=== PATIENT | male | born 1980 | race Caucasian/White ===

== ENCOUNTER 2020-06-24 19:52 | Outpatient (REF) | payer BC, SELFPAY ==
[2020-06-27 13:02] LABS: COVID-19 RT-PCR Result NEGATIVE (Negative)
== END 2020-06-24 20:12 ==
LOC: NCHCN 19:52
PROVIDERS: PCP Nurse Practitioner Family; Visit Provider Nurse Practitioner Family
DX: Z20.828 Contact with and (suspected) exposure to other viral communicable diseases (principal)
CPT/HCPCS: U0003

== ENCOUNTER 2021-04-21 15:18 | Outpatient (REF) | payer BC, SELFPAY ==
[2021-04-21 20:57] LABS: HCT 44.2 % (40.0-50.0); HGB 14.6 g/dL (13.5-17.5); MCV 90.8 fL (80-95); MPV 12.4 fL (8.0-11.0); Platelet Count 226 10^3/uL (130-400); RBC 4.87 10^6/uL (4.36-5.78); RDW 14.3 % (11.8-14.1); RDW-SD 47.9 fL; WBC 7.78 10^3/uL (4.4-10.8)
[2021-04-21 21:16] LABS: ALT 30 U/L (16-63); AST 15 U/L (15-37); Albumin 4.1 g/dL (3.4-5.0); Alkaline Phosphatase 55 U/L (46-116); Anion Gap 7.1 mmol/L (3-11); BUN 15 mg/dL (7-18); Bilirubin, Total 0.4 mg/dL (0.2-1.0); CO2 30.9 mmol/L (21.0-32.0); CREATININE 1.1 mg/dL (0.70-1.30); Calcium 8.9 mg/dL (8.5-10.1); Chloride 105 mmol/L (98-107); Glucose 94 mg/dL (74-106); Potassium 4.3 mmol/L (3.5-5.1); Sodium 143 mmol/L (136-145); TSH (W/Ref FT4) 0.87 uIU/mL (0.36-3.74); Total Protein 6.8 g/dL (6.4-8.2)
[2021-05-01 17:39] LABS: Testosterone, Free 11.9 ng/dL (4.65-18.1); Testosterone, Total 441 ng/dL (240-950)
== END 2021-04-21 15:19 | disposition home or self-care (01) ==
LOC: NCHCN 15:18
PROVIDERS: PCP Nurse Practitioner Family; Visit Provider Family Medicine
DX: H00.019 Hordeolum externum unspecified eye, unspecified eyelid (principal); R53.83 Other fatigue
CPT/HCPCS: 80053; 84402; 84403; 85027; 84443

== ENCOUNTER 2023-11-01 15:53 | Outpatient (CLI) | payer BC, SELFPAY ==
--- NOTE | 2023-11-01 09:45 | DI.RAD_ITS ---
Exam(s) XR WRIST RT COMPLETE EXAM: XR WRIST RT COMPLETE CLINICAL HISTORY: RIGHT WRIST PAIN. TECHNIQUE: 2D digital imaging was performed. Three views. COMPARISON: CR RIGHT WRIST COMPLETE from 08/05/2009 CR RIGHT WRIST COMPLETE from 11/20/2009 CT HEAD WITHOUT CONTRAST from 12/12/2009 CR RIGHT WRIST COMPLETE from 01/20/2010 FINDINGS: BONES: No acute fracture is present. There is an old nonunited ulnar styloid fracture. No bony dest ructive lesion is seen. JOINTS: Abnormal widening of the scapholunate distance. Mild dorsal tilt of the lunate. No signif icant degenerative changes. SOFT TISSUE: Normal. IMPRESSION: Scapholunate ligament disruption. Old ulnar styloid fracture. DATA REPOSITORY: RADIATION DOSE DELIVERED:
== END 2023-11-01 15:54 | disposition home or self-care (01) ==
LOC: DIORS 15:53
PROVIDERS: PCP Nurse Practitioner Family; Visit Provider Student in an Organized Health Care Education/Training Program
DX: M25.531 Pain in right wrist (principal)
CPT/HCPCS: 73110

== ENCOUNTER → 2023-12-26 03:26 | Outpatient (CLI) | payer BC, SELFPAY ==
--- NOTE | 2023-12-26 | DI.MRI_ITS ---
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 TECHNIQUE: Multiplanar multisequence MRI was performed. COMPARISON: Comparison x-rays 11/01/2023. FINDINGS: BONES: There is an old nonunited ulnar styloid process fracture. There is minimal marrow edema seen in the proximal pole of the scaphoid bone, but no fractures identified. JOINTS: There is narrowing of the medial radiocarpal joint. There is widening of the scapholunate j luis int with hyperintense signal seen on the T2 weighted images within the joint space. The scapholunate ligament is not visualized. The carpal joints are otherwise unremarkable. TENDONS: Flexors: Unremarkable. Extensors: Unremarkable. MUSCLES: Unremarkable. MEDIAN NERVE: Unremarkable on this noncontrast examination. ULNAR NERVE: Unremarkable on this noncontrast examination. SOFT TISSUES: There is a cyst associated with the triquetral pisiform joint most consistent with a ga nglion cyst. It measures 1.0 x 3.3 cm. LIGAMENTS: There is widening of the scapholunate joint. The scapholunate ligament is not visualized on this examination. TRIANGULAR FIBROCARTILAGE: Unremarkable. OTHER: IMPRESSION: 1. Findings of a scapholunate ligament tear. This is of indeterminate acuity. There is mild increas ed signal seen around the scapholunate region suggesting possible subacute injury. There is mild mar row edema seen in the proximal pole of the scaphoid. No evidence of a scaphoid fracture. 2. Ganglion cyst adjacent to the triquetral pisiform joint. It measures 1.0 x 3.3 cm. 3. 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 DATA REPOSITORY:
== END ==
PROVIDERS: PCP Nurse Practitioner Family; Visit Provider Surgery Plastic and Reconstructive Surgery
DX: S63.391A Traumatic rupture of other ligament of right wrist, initial encounter (principal); X58.XXXA Exposure to other specified factors, initial encounter
CPT/HCPCS: 73221

== ENCOUNTER 2024-04-16 10:32 | Outpatient (REF) | payer BC, SELFPAY | END 2024-04-16 10:33 | disposition home or self-care (01) | LOC: LBN 10:32 | PROVIDERS: PCP Nurse Practitioner Family; Visit Provider Physician Assistant | DX: L98.9 Disorder of the skin and subcutaneous tissue, unspecified (principal) | CPT/HCPCS: 87077; 87070; 87186; 87205 ==

== ENCOUNTER 2024-06-12 03:25 | Outpatient (CLI) | payer BC, SELFPAY ==
[2024-06-12] MEDS: Methacholine 100 MG VIAL IH (12:03)
[2024-06-12] MEDS: Inhaler, Assist Device 1 EACH MC (12:03)
[2024-06-12] MEDS: Albuterol HFA 18 GM 200 PUFF INH IH (12:04)
--- NOTE | 2024-06-13 12:11 | W.PFT ---
Date of service: 06/12/24 Time of Service: 10:11 Pulmonary Function Test Result Indications: Dyspnea Interpretation Spirometry: There is no baseline airflow limitation. There was a 20% decrease in FEV1 with administration of 8mg/dL methacholine. Impression There is borderline airway hyperresponsiveness. Clinical Correlation therefore is recommended.
== END 2024-06-12 03:26 | disposition home or self-care (01) ==
LOC: RT 03:25
PROVIDERS: PCP Nurse Practitioner Family; Visit Provider Student in an Organized Health Care Education/Training Program
DX: R06.00 Dyspnea, unspecified (principal)
CPT/HCPCS: 94060; 94070; J7674

== ENCOUNTER 2025-04-24 08:53 | Outpatient (CLI) | payer BC, SELFPAY ==
[2025-04-24 09:55] LABS: ALT 56 U/L (16-63); AST 27 U/L (15-37); Albumin 4.0 g/dL (3.4-5.0); Alkaline Phosphatase 47 U/L (46-116); Anion Gap 4.4 mmol/L (3-11); BUN 15 mg/dL (7-18); Bilirubin, Total 0.6 mg/dL (0.2-1.0); CO2 31.6 mmol/L (21.0-32.0); Calcium 8.8 mg/dL (8.5-10.1); Calculated LDL 76 mg/dL (<100); Chloride 105 mmol/L (98-107); Cholesterol 157 mg/dL (<200); Estimated GFR 112.61 (mL/min/1.73m2); Glucose 107 mg/dL (74-106); HDL Cholesterol 72 mg/dL (>or=40); Potassium 4.7 mmol/L (3.5-5.1); Sodium 141 mmol/L (136-145); TSH (W/Ref FT4) 0.58 uIU/mL (0.36-3.74); Total Protein 7.3 g/dL (6.4-8.2); Triglyceride 47 mg/dL (<150)
== END 2025-04-24 08:54 | disposition home or self-care (01) ==
LOC: LBO 08:54
PROVIDERS: PCP Nurse Practitioner Family; Visit Provider Nurse Practitioner Family
DX: Z13.220 Encounter for screening for lipoid disorders (principal); N62 Hypertrophy of breast
CPT/HCPCS: 36415; 80053; 80061; 84403; 84443